=== PATIENT | female | born 1980 | race African-American/Black ===

== ENCOUNTER 2018-09-09 01:22 | Emergency (ER) | payer SELFPAY ==
[~2018-09-09] VITALS: Ht 172.7 cm; Wt 81.8 kg
[~2018-09-09 01:22] MED LIST: NO HOME MEDICATIONS
[2018-09-09 01:31] VITALS: BP 149/93; PULSE 77; TEMP 97.3
[2018-09-09] MEDS ORDERED: NORCO 325 MG-51 TAB PO (01:53)
[2018-09-09] MEDS ORDERED: PEN-VEE K500 MG PO (01:53)
== END 2018-09-09 02:03 | disposition home or self-care (01) ==
LOC: COL.ER 01:22
DX: S02.5XXA Fracture of tooth (traumatic), initial encounter for closed fracture (principal); F17.210 Nicotine dependence, cigarettes, uncomplicated

== ENCOUNTER 2021-03-01 16:07 | Emergency (ER) | payer SELFPAY ==
[~2021-03-01] VITALS: Ht 172.7 cm; Wt 108.2 kg
[~2021-03-01 16:07] MED LIST changes: +NORCO 325 MG-51 TAB PO; +PEN-VEE K500 MG PO
[2021-03-01 16:45] VITALS: TEMP 100
[2021-03-01 18:00] LABS: HEMATOCRIT 43.8 % (37.0-47.0); HEMOGLOBIN 14.9 g/dl (12.5-16.0); MEAN CELL VOLUME 89 fl (80.0-100.0); MEAN CORPUSCULAR HEMOGLOBIN 30 pg (27.0-31.0); MEAN CORPUSCULAR HGB CONC 34 g/dl (33.0-37.0); MEAN PLATELET VOLUME 11.2 fl (7.4-10.4); PLATELET COUNT 243 K/mm3 (130-400); REDCELL DISTRIBUTION WIDTH-CV 13.7 % (11.5-14.5)
[2021-03-01 18:09] LABS: ALANINE AMINOTRANSFERASE 40 U/L (4-34); ALBUMIN 4.2 gm/dL (3.5-5.0); ALKALINE PHOSPHATASE 88 U/L (50-136); ANION GAP 8 mmol/L (7-16); AST,SGOT 43 U/L (15-37); BILIRUBIN,TOTAL 0.3 mg/dL (0.0-1.0); BLOOD UREA NITROGEN 10 mg/dL (7-17); CALCIUM 8.7 mg/dL (8.4-10.2); CARBON DIOXIDE 27 mmol/L (22-30); CHLORIDE 102 mmol/L (98-107); CREATININE, serum 0.71 (0.52-1.25); GLUCOSE 93 mg/dL (74-106); POTASSIUM 3.6 mmol/L (3.4-5.0); SODIUM 136 mmol/L (137-145); TOTAL PROTEIN 7.7 gm/dL (6.4-8.2)
[2021-03-01 18:26] LABS: TROPONIN-I < 0.012 ng/mL (0.000-0.035)
[2021-03-01] MEDS ORDERED: ZITHROMAX Z PA250 MG PO (19:20)
[2021-03-01 19:31] LABS: BAND 3 % (0-10); LYMPHOCYTE 34 % (20.0-51.0); METAMYELOCYTE 2 % (0-0); NEUTROPHILS 50 % (42.0-75.2)
[2021-03-01 19:32] LABS: PLATELET ESTIMATE NORMAL (NORMAL)
[2021-03-01 20:07] VITALS: BP 130/88; PULSE 88
== END 2021-03-01 20:09 | disposition home or self-care (01) ==
LOC: COL.ER 16:07
PROVIDERS: Physician Assistant
DX: U07.1 COVID-19 (principal); J12.82 Pneumonia due to coronavirus disease 2019; F17.210 Nicotine dependence, cigarettes, uncomplicated
CPT/HCPCS: C9113; J0696; J7030

== ENCOUNTER 2021-07-07 08:09 | Emergency (ER) | payer SELFPAY ==
[~2021-07-07] VITALS: Ht 172.7 cm; Wt 97.7 kg
[~2021-07-07 08:09] MED LIST changes: +ZITHROMAX Z PA250 MG PO
[2021-07-07 08:24] VITALS: TEMP 98.2
[2021-07-07 09:08] LABS: BASO # 0.1 K/mm3 (0.0-0.2); BASO % 0.6 % (0.0-2.0); EOS % 0.2 % (0.0-4.0); GRAN # 7.5 K/mm3 (1.4-6.5); HEMATOCRIT 40.5 % (37.0-47.0); HEMOGLOBIN 13.4 g/dl (12.5-16.0); LYMPH # 2.4 K/mm3 (1.2-3.4); LYMPH % 22.1 % (20.0-51.0); MEAN CELL VOLUME 93 fl (80.0-100.0); MEAN CORPUSCULAR HEMOGLOBIN 31 pg (27-31); MEAN CORPUSCULAR HGB CONC 33 g/dl (33.0-37.0); MEAN PLATELET VOLUME 10.6 fl (7.4-10.4); MONO # 0.8 K/mm3 (0.1-0.6); MONO % 7.6 % (1.7-9.3); PLATELET COUNT 325 K/mm3 (130-400); RED BLOOD COUNT 4.37 M/mm3 (4.10-5.30); REDCELL DISTRIBUTION WIDTH-CV 13.5 % (11.5-14.5)
[2021-07-07 09:29] LABS: ALBUMIN 3.9 gm/dL (3.5-5.0); BILIRUBIN,TOTAL 0.6 mg/dL (0.2-1.2); C-REACTIVE PROTEIN 0.6 mg/dL (0.00-0.50); CALCIUM 9.1 mg/dL (8.4-10.2); CREATININE, serum 0.71 mg/dL (0.57-1.11); POTASSIUM 3.8 mmol/L (3.5-4.5)
[2021-07-07] MEDS ORDERED: ZOFRAN ODT4 MG PO (09:47)
[2021-07-07] MEDS ORDERED: NORVASC2.5 MG PO (10:04)
[2021-07-07 10:50] VITALS: BP 130/81; PULSE 80
== END 2021-07-07 10:55 | disposition home or self-care (01) ==
LOC: COL.ER 08:09
PROVIDERS: Emergency Medicine
DX: I10 Essential (primary) hypertension (principal); R11.2 Nausea with vomiting, unspecified; R19.7 Diarrhea, unspecified; F17.210 Nicotine dependence, cigarettes, uncomplicated; Z20.822 Contact with and (suspected) exposure to COVID-19
CPT/HCPCS: J2270; J2405; J2550; J7030

== ENCOUNTER 2023-09-11 07:28 | Emergency (ER) | payer SELFPAY ==
[~2023-09-11] VITALS: Ht 170.2 cm; Wt 97.7 kg
[~2023-09-11 07:28] MED LIST changes: +NORVASC2.5 MG PO; +ZOFRAN ODT4 MG PO
[2023-09-11 07:35] VITALS: TEMP 98.1
[2023-09-11] MEDS ORDERED: Methocarbamol 500 MG TAB PO ONE (08:00)
[2023-09-11] MEDS ORDERED: Acetaminophen 500 MG TAB PO ONE (08:00)
[2023-09-11] MEDS ORDERED: Ibuprofen 600 MG TAB PO ONE (08:00)
[2023-09-11 09:15] VITALS: BP 178/119; PULSE 75
== END 2023-09-11 09:15 | disposition home or self-care (01) ==
LOC: COL.ER 07:28
DX: J06.9 Acute upper respiratory infection, unspecified (principal); U07.1 COVID-19; J02.9 Acute pharyngitis, unspecified; R11.0 Nausea